=== PATIENT | male | born 1935 | race African-American/Black ===

== ENCOUNTER 2019-12-13 18:38 | Inpatient (IN) | payer BC, MEDICARE ==
[~2019-12-13] VITALS: Ht 177.8 cm; Wt 86.2 kg
[2019-12-13] MEDS ORDERED: ACETAMINOPHEN 325MG TABLET PO ONE (19:45)
[2019-12-13 20:03] LABS: BASOPHILS % 0.3 % (0.0-2.0); EOSINOPHILS % 0.2 % (0.0-5.0); HEMATOCRIT. 39.6 % (42.0-52.0); HEMOGLOBIN. 13.4 g/dL (14.0-18.0); LYMPHOCYTES % 9.3 % (20.0-50.0); MEAN CORPUSCULAR HEMOGLOBIN 32.1 pg (28.0-32.0); MEAN CORPUSCULAR VOLUME 95.2 fL (80.0-94.0); MEAN PLATELET VOLUME 9.1 fl (7.4-10.4); MONOCYTES % 7.4 % (2.0-8.0); NEUTROPHILS % 82.8 % (40.0-76.0); PLATELET 124 x1000/uL (130-400); RED BLOOD CELL COUNT 4.16 mill/uL (4.7-6.1); RED CELL DISTRIBUTION WIDTH 15.1 % (11.6-14.6)
[2019-12-13 20:10] LABS: PROTHROMBIN TIME 11.2 sec (9.6-11.0)
[2019-12-13 20:13] LABS: CHLORIDE 108 mEq/L (98-107)
[2019-12-13 20:19] LABS: ETHANOL BLOOD < 10 mg/dL
[2019-12-13] MEDS ORDERED: SODIUM CHLORIDE 0.9% 1,000 ML IV ONE (20:50)
[2019-12-13] MEDS ORDERED: IPRATROPIUM/ALBUTEROL 0.5-3(2.5)MG/3ML NEB HHN PRN (21:45)
[2019-12-13] MEDS ORDERED: ACETAMINOPHEN 325MG TABLET PO PRN (21:45)
[2019-12-13] MEDS ORDERED: GUAIFENESIN 200MG/10ML SUGAR FREE UDC PO PRN (21:45)
[2019-12-13] MEDS ORDERED: ONDANSETRON HCL 4MG/2ML INJ IV PRN (21:45)
[2019-12-13] MEDS ORDERED: MAGNESIUM/ALUMINUM HYDROXIDE/SIMETHICONE 30ML UDC PO PRN (21:45)
[2019-12-13 21:58] LABS: CLARITY URINE CLEAR (CLEAR); COLOR URINE YELLOW (YELLOW); KETONES URINE NEGATIVE (NEGATIVE); LEUKOCYTE ESTERASE URINE NEGATIVE (NEGATIVE); NITRITE URINE NEGATIVE (NEGATIVE); OCCULT BLOOD URINE NEGATIVE (NEGATIVE); PH URINE 6.5 (4.5-8.0); PROTEIN URINE NEGATIVE (NEGATIVE); SPECIFIC GRAVITY URINE 1.018 (1.005-1.030); UROBILINOGEN URINE 0.2 E.U./dL (0.2-1.0)
[2019-12-13] MEDS ORDERED: MORPHINE SULFATE 2 MG/ML CPJ (NOT FOR IM USE) IV PRN (22:00)
[2019-12-13] MEDS ORDERED: HYDROCODONE/ACETAMINOPHEN 10/325MG TABLET PO PRN (22:00)
[2019-12-13] MEDS: SODIUM CHLORIDE 0.45% 1,000 ML IV SCH (22:00)
[2019-12-13 22:14] LABS: *BARBITURATES SCREEN URINE NEGATIVE (NEGATIVE)
[2019-12-13 22:15] LABS: *AMPHETAMINES SCREEN URINE NEGATIVE (NEGATIVE); *BENZODIAZEPINES SCREEN URINE NEGATIVE (NEGATIVE); *COCAINE SCREEN URINE NEGATIVE (NEGATIVE); CANNABINOID URINE SCREEN NEGATIVE (NEGATIVE); METHADONE URINE SCREEN NEGATIVE (NEGATIVE); OPIATES URINE SCREEN NEGATIVE (NEGATIVE); PHENCYCLIDINE URINE SCREEN NEGATIVE (NEGATIVE)
[2019-12-13] MEDS: SODIUM CHLORIDE 0.9% INJ 3ML FLUSH IVF SCH (22:59)
[2019-12-14 00:29] LABS: CREATINE KINASE MB FRACTION 9.1 ng/mL (0.5-3.6)
[2019-12-14 04:39] LABS: CHLORIDE 110 mEq/L (98-107)
[2019-12-14 04:48] LABS: CREATINE KINASE 385 IU/L (39-308); CREATINE KINASE MB FRACTION 8.1 ng/mL (0.5-3.6); HEMATOCRIT. 38.3 % (42.0-52.0); HEMOGLOBIN. 12.7 g/dL (14.0-18.0); MEAN CORPUSCULAR HEMOGLOBIN 32.4 pg (28.0-32.0); MEAN CORPUSCULAR VOLUME 97.9 fL (80.0-94.0); MEAN PLATELET VOLUME 9.6 fl (7.4-10.4); PLATELET 100 x1000/uL (130-400); RED BLOOD CELL COUNT 3.91 mill/uL (4.7-6.1)
[2019-12-14] MEDS: LORAZEPAM 2MG/ML CPJ IV PRN ×4 (05:37→17:25)
[2019-12-14] MEDS: SODIUM CHLORIDE 0.9% INJ 3ML FLUSH IVF SCH ×3 (06:13→22:00)
[2019-12-14] MEDS ORDERED: ENOXAPARIN 40MG/0.4ML SYR SUBCUT SCH (09:00)
[2019-12-14 09:12] VITALS: BP 164/63
[2019-12-14 11:00] VITALS: BP 164/63
[2019-12-14 12:26] VITALS: BP 139/56
[2019-12-14 12:52] LABS: PLATELET ESTIMATE DECREASED
[2019-12-14] MEDS ORDERED: FINA5TAB11 PO (15:01)
[2019-12-14] MEDS ORDERED: LISI40TA4 MT (15:01)
[2019-12-14] MEDS ORDERED: MEMA10TA55 PO (15:01)
[2019-12-14] MEDS ORDERED: HYDR-4135 PO (15:01)
[2019-12-14] MEDS ORDERED: DONE10TA43 PO (15:01)
[2019-12-14] MEDS ORDERED: SERT25TA74 PO (15:01)
[2019-12-14] MEDS ORDERED: AMLO5TAB88 PO (15:01)
[2019-12-14] MEDS ORDERED: GABA-529 PO (15:01)
[2019-12-14] MEDS ORDERED: TAMS-11 PO (15:01)
[2019-12-14] MEDS ORDERED: APIX2.5T MT (15:01)
[2019-12-14] MEDS ORDERED: FURO40TA5 PO (15:01)
[2019-12-14 15:33] VITALS: BP 139/64
[2019-12-14] MEDS: SODIUM CHLORIDE 0.45% 1,000 ML IV SCH (22:00)
[2019-12-15] VITALS (12 sets, daily range): BP systolic 147–166; BP diastolic 67–116
[2019-12-15] MEDS: SODIUM CHLORIDE 0.9% INJ 3ML FLUSH IVF SCH ×3 (05:19→21:35)
[2019-12-15 07:09] LABS: VITAMIN B12 SERUM 1510 pg/mL (211-911)
[2019-12-15] MEDS: APIXABAN 2.5 MG TABLET PO SCH ×2 (10:00→17:00)
[2019-12-15] MEDS: LORAZEPAM 2MG/ML CPJ IV PRN ×2 (10:59→16:20)
[2019-12-15] MEDS: SODIUM CHLORIDE 0.45% 1,000 ML IV SCH (21:35)
[2019-12-16] VITALS (12 sets, daily range): BP systolic 136–194; BP diastolic 59–100
[2019-12-16] MEDS: CLONIDINE 0.1MG TABLET PO PRN (05:05)
[2019-12-16] MEDS: SODIUM CHLORIDE 0.9% INJ 3ML FLUSH IVF SCH ×3 (05:16→22:18)
[2019-12-16 06:13] LABS: CHLORIDE 111 mEq/L (98-107)
[2019-12-16 08:08] LABS: HEMATOCRIT. 40.5 % (42.0-52.0); HEMOGLOBIN. 13.5 g/dL (14.0-18.0); MEAN CORPUSCULAR HEMOGLOBIN 32.6 pg (28.0-32.0); MEAN CORPUSCULAR VOLUME 97.3 fL (80.0-94.0); MEAN PLATELET VOLUME 10.1 fl (7.4-10.4); PLATELET 108 x1000/uL (130-400); RED BLOOD CELL COUNT 4.16 mill/uL (4.7-6.1)
[2019-12-16] MEDS: APIXABAN 2.5 MG TABLET PO SCH (08:27)
[2019-12-16 11:58] LABS: PLATELET ESTIMATE DECREASED
[2019-12-16] MEDS: AMLODIPINE 5MG TABLET PO SCH ×2 (12:02→20:23)
[2019-12-16] MEDS: LORAZEPAM 2MG/ML CPJ IV PRN ×2 (15:35→20:23)
[2019-12-16] MEDS ORDERED: BISACODYL 10MG SUPP PR NR (16:00)
[2019-12-16] MEDS ORDERED: LACTULOSE 20G/30ML UDC PO NR (17:00)
[2019-12-16] MEDS: MEMANTINE HCL 10MG TABLET PO SCH (18:01)
[2019-12-16] MEDS: ALPRAZOLAM 0.25 MG TABLET PO PRN (18:49)
[2019-12-16] MEDS ORDERED: BISACODYL 10MG SUPP PR PRN (21:00)
[2019-12-16] MEDS ORDERED: DOCUSATE SODIUM 100MG CAPSULE PO SCH (21:00)
[2019-12-16] MEDS ORDERED: MEMANTINE HCL 5MG TABLET PO SCH (21:00)
[2019-12-16 22:39] LABS: CLARITY URINE CLEAR (CLEAR); COLOR URINE YELLOW (YELLOW); KETONES URINE NEGATIVE (NEGATIVE); LEUKOCYTE ESTERASE URINE NEGATIVE (NEGATIVE); NITRITE URINE NEGATIVE (NEGATIVE); OCCULT BLOOD URINE NEGATIVE (NEGATIVE); PROTEIN URINE NEGATIVE (NEGATIVE); SPECIFIC GRAVITY URINE 1.005 (1.005-1.030); UROBILINOGEN URINE 0.2 E.U./dL (0.2-1.0)
[2019-12-17] VITALS (11 sets, daily range): BP systolic 139–175; BP diastolic 64–108
[2019-12-17] MEDS: HYDRALAZINE 20MG/ML VIAL IV PRN (00:21)
[2019-12-17] MEDS: LORAZEPAM 2MG/ML CPJ IV PRN ×3 (02:10→17:44)
[2019-12-17] MEDS: SODIUM CHLORIDE 0.9% INJ 3ML FLUSH IVF SCH ×3 (06:33→21:35)
[2019-12-17] MEDS: MEMANTINE HCL 10MG TABLET PO SCH ×2 (09:00→17:00)
[2019-12-17] MEDS: AMLODIPINE 5MG TABLET PO SCH ×2 (09:00→20:04)
[2019-12-17 10:25] LABS: BASOPHILS % 0.4 % (0.0-2.0); EOSINOPHILS % 1.2 % (0.0-5.0); HEMATOCRIT. 41.5 % (42.0-52.0); HEMOGLOBIN. 14.2 g/dL (14.0-18.0); LYMPHOCYTES % 18.5 % (20.0-50.0); MEAN CORPUSCULAR HEMOGLOBIN 32.7 pg (28.0-32.0); MEAN CORPUSCULAR VOLUME 95.7 fL (80.0-94.0); MEAN PLATELET VOLUME 9.3 fl (7.4-10.4); MONOCYTES % 12.9 % (2.0-8.0); PLATELET 109 x1000/uL (130-400); RED BLOOD CELL COUNT 4.34 mill/uL (4.7-6.1); RED CELL DISTRIBUTION WIDTH 15.3 % (11.6-14.6)
[2019-12-17 10:35] LABS: CHLORIDE 108 mEq/L (98-107)
[2019-12-17] MEDS ORDERED: MIDAZOLAM HCL 2 MG/2 ML VIAL ONE (13:22)
[2019-12-17] MEDS ORDERED: PROPOFOL 10MG/ML 100ML 100 ML IV ONE (13:23)
[2019-12-17] MEDS ORDERED: GENTAMICIN SULF 40MG/ML 2ML VIAL ONE (13:29)
[2019-12-17] MEDS ORDERED: GENTAMICIN/NS IRRIGATION 500 ML IR ONE (13:31)
[2019-12-17] MEDS ORDERED: LIDOCAINE HCL 1% 20ML VIAL (Pyxis) INJ ONE (13:31)
[2019-12-17] MEDS ORDERED: MORPHINE SULFATE 2 MG/ML CPJ (NOT FOR IM USE) IV PRN (15:00)
[2019-12-17] MEDS ORDERED: HYDROCODONE/ACETAMINOPHEN 5/325MG TABLET PO PRN (15:00)
[2019-12-17] MEDS: LOSARTAN POTASSIUM 50 MG TABLET PO SCH (15:00)
[2019-12-17] MEDS ORDERED: CEFAZOLIN 1000MG PREMIX 50 ML IV SCH (16:00)
[2019-12-17] MEDS: ALPRAZOLAM 0.25 MG TABLET PO PRN (17:41)
[2019-12-17] MEDS ORDERED: HALOPERIDOL LACTATE 5MG/ML VIAL IM NR (19:00)
[2019-12-17] MEDS: CEFAZOLIN 1000MG PREMIX 50 ML IV SCH (20:01)
[2019-12-17] MEDS ORDERED: CEFAZOLIN SODIUM 1000MG/VIAL IV SCH (22:00)
[2019-12-18] VITALS (12 sets, daily range): BP systolic 132–155; BP diastolic 44–81
[2019-12-18] MEDS: LORAZEPAM 2MG/ML CPJ IV PRN ×3 (01:58→20:46)
[2019-12-18] MEDS: CEFAZOLIN 1000MG PREMIX 50 ML IV SCH ×3 (02:03→19:05)
[2019-12-18] MEDS: SODIUM CHLORIDE 0.9% INJ 3ML FLUSH IVF SCH ×3 (05:39→22:02)
[2019-12-18 06:12] LABS: CHLORIDE 108 mEq/L (98-107)
[2019-12-18 06:13] LABS: BASOPHILS % 0.2 % (0.0-2.0); EOSINOPHILS % 0.9 % (0.0-5.0); HEMATOCRIT. 39.2 % (42.0-52.0); HEMOGLOBIN. 13.3 g/dL (14.0-18.0); LYMPHOCYTES % 12.1 % (20.0-50.0); MEAN CORPUSCULAR HEMOGLOBIN 32.5 pg (28.0-32.0); MEAN CORPUSCULAR VOLUME 95.6 fL (80.0-94.0); MONOCYTES % 11.9 % (2.0-8.0); NEUTROPHILS % 74.9 % (40.0-76.0); PLATELET 113 x1000/uL (130-400); RED CELL DISTRIBUTION WIDTH 15.5 % (11.6-14.6)
[2019-12-18] MEDS: ALPRAZOLAM 0.25 MG TABLET PO PRN (07:31)
[2019-12-18] MEDS: MEMANTINE HCL 10MG TABLET PO SCH ×2 (08:36→16:42)
[2019-12-18] MEDS: LOSARTAN POTASSIUM 50 MG TABLET PO SCH ×3 (08:36→20:46)
[2019-12-18] MEDS: AMLODIPINE 5MG TABLET PO SCH ×2 (08:36→20:45)
[2019-12-18] MEDS: RISPERIDONE 0.5MG TABLET PO SCH (20:46)
[2019-12-19] VITALS (13 sets, daily range): BP systolic 128–179; BP diastolic 67–99
[2019-12-19] MEDS: CLONIDINE 0.1MG TABLET PO PRN (04:09)
[2019-12-19] MEDS: SODIUM CHLORIDE 0.9% INJ 3ML FLUSH IVF SCH ×3 (05:13→21:24)
[2019-12-19] MEDS: MEMANTINE HCL 10MG TABLET PO SCH ×2 (09:57→17:45)
[2019-12-19] MEDS: DOCUSATE SODIUM 100MG CAPSULE PO PRN ×2 (09:58→17:45)
[2019-12-19] MEDS: APIXABAN 2.5 MG TABLET PO SCH ×2 (09:58→17:45)
[2019-12-19] MEDS: RISPERIDONE 0.5MG TABLET PO SCH ×2 (09:58→17:45)
[2019-12-19] MEDS: LOSARTAN POTASSIUM 50 MG TABLET PO SCH ×2 (09:58→21:24)
[2019-12-19] MEDS: AMLODIPINE 5MG TABLET PO SCH ×2 (09:58→21:24)
[2019-12-20] VITALS (12 sets, daily range): BP systolic 123–179; BP diastolic 28–114
[2019-12-20] MEDS: LORAZEPAM 2MG/ML CPJ IV PRN ×2 (00:09→14:47)
[2019-12-20] MEDS: SODIUM CHLORIDE 0.9% INJ 3ML FLUSH IVF SCH ×3 (05:46→21:17)
[2019-12-20 06:45] LABS: BASOPHILS % 0.2 % (0.0-2.0); EOSINOPHILS % 2.2 % (0.0-5.0); HEMATOCRIT. 43.2 % (42.0-52.0); HEMOGLOBIN. 14.6 g/dL (14.0-18.0); LYMPHOCYTES % 18.9 % (20.0-50.0); MEAN CORPUSCULAR HEMOGLOBIN 32.4 pg (28.0-32.0); MEAN PLATELET VOLUME 9.5 fl (7.4-10.4); MONOCYTES % 13.4 % (2.0-8.0); NEUTROPHILS % 65.3 % (40.0-76.0); PLATELET 126 x1000/uL (130-400); RED CELL DISTRIBUTION WIDTH 15.6 % (11.6-14.6)
[2019-12-20 06:56] LABS: CHLORIDE 109 mEq/L (98-107)
[2019-12-20] MEDS: RISPERIDONE 0.5MG TABLET PO SCH ×2 (08:38→16:04)
[2019-12-20] MEDS: APIXABAN 2.5 MG TABLET PO SCH ×2 (08:38→16:04)
[2019-12-20] MEDS: MEMANTINE HCL 10MG TABLET PO SCH ×2 (08:38→16:04)
[2019-12-20] MEDS: LOSARTAN POTASSIUM 50 MG TABLET PO SCH ×2 (08:38→20:50)
[2019-12-20] MEDS: AMLODIPINE 5MG TABLET PO SCH ×2 (08:39→20:50)
[2019-12-20] MEDS: DOCUSATE SODIUM 100MG CAPSULE PO PRN ×2 (08:39→16:04)
[2019-12-21] VITALS (12 sets, daily range): BP systolic 100–179; BP diastolic 49–89
[2019-12-21] MEDS: CLONIDINE 0.1MG TABLET PO PRN (02:18)
[2019-12-21] MEDS: SODIUM CHLORIDE 0.9% INJ 3ML FLUSH IVF SCH ×3 (06:14→21:51)
[2019-12-21 07:44] LABS: BASOPHILS % 0.4 % (0.0-2.0); EOSINOPHILS % 2.8 % (0.0-5.0); HEMATOCRIT. 40.9 % (42.0-52.0); MEAN CORPUSCULAR HEMOGLOBIN 32.5 pg (28.0-32.0); MEAN CORPUSCULAR VOLUME 94.8 fL (80.0-94.0); MEAN PLATELET VOLUME 9.4 fl (7.4-10.4); MONOCYTES % 14.6 % (2.0-8.0); NEUTROPHILS % 63.2 % (40.0-76.0); PLATELET 118 x1000/uL (130-400); RED BLOOD CELL COUNT 4.32 mill/uL (4.7-6.1); RED CELL DISTRIBUTION WIDTH 15.3 % (11.6-14.6)
[2019-12-21 08:57] LABS: CHLORIDE 109 mEq/L (98-107)
[2019-12-21] MEDS: APIXABAN 2.5 MG TABLET PO SCH ×2 (09:00→17:04)
[2019-12-21] MEDS: MEMANTINE HCL 10MG TABLET PO SCH ×2 (09:00→17:04)
[2019-12-21] MEDS ORDERED: RISPERIDONE 1MG TABLET PO SCH (09:00)
[2019-12-21] MEDS: AMLODIPINE 5MG TABLET PO SCH ×2 (09:00→20:35)
[2019-12-21] MEDS: LOSARTAN POTASSIUM 50 MG TABLET PO SCH ×2 (09:00→20:35)
[2019-12-22] MEDS: HYDRALAZINE 20MG/ML VIAL IV PRN (01:25)
[2019-12-22] MEDS: DIPHENHYDRAMINE 50MG/ML VIAL IV PRN (01:25)
[2019-12-22] MEDS: SODIUM CHLORIDE 0.9% INJ 3ML FLUSH IVF SCH ×3 (06:49→21:22)
[2019-12-22 07:08] LABS: BASOPHILS % 0.6 % (0.0-2.0); EOSINOPHILS % 2.4 % (0.0-5.0); HEMATOCRIT. 42.4 % (42.0-52.0); HEMOGLOBIN. 14.4 g/dL (14.0-18.0); LYMPHOCYTES % 23.3 % (20.0-50.0); MEAN CORPUSCULAR HEMOGLOBIN 32.2 pg (28.0-32.0); MEAN CORPUSCULAR VOLUME 95.1 fL (80.0-94.0); MEAN PLATELET VOLUME 9.8 fl (7.4-10.4); MONOCYTES % 14.9 % (2.0-8.0); NEUTROPHILS % 58.8 % (40.0-76.0); PLATELET 121 x1000/uL (130-400); RED BLOOD CELL COUNT 4.46 mill/uL (4.7-6.1); RED CELL DISTRIBUTION WIDTH 15.7 % (11.6-14.6)
[2019-12-22 07:19] LABS: CHLORIDE 108 mEq/L (98-107)
[2019-12-22 08:00] VITALS: BP 158/78
[2019-12-22] MEDS: APIXABAN 2.5 MG TABLET PO SCH ×2 (09:46→17:34)
[2019-12-22] MEDS: LOSARTAN POTASSIUM 50 MG TABLET PO SCH ×2 (09:46→20:23)
[2019-12-22] MEDS: MEMANTINE HCL 10MG TABLET PO SCH ×2 (09:46→17:34)
[2019-12-22] MEDS: AMLODIPINE 5MG TABLET PO SCH ×2 (09:53→20:23)
[2019-12-22 16:00] VITALS: BP 137/80
[2019-12-22 20:00] VITALS: BP 137/71
[2019-12-22] MEDS: RISPERIDONE 1MG TABLET PO SCH (20:23)
[2019-12-22] MEDS: HALOPERIDOL LACTATE 5MG/ML VIAL IM PRN (23:54)
[2019-12-23] VITALS: BP 147/79
[2019-12-23 04:00] VITALS: BP 128/86
[2019-12-23] MEDS: SODIUM CHLORIDE 0.9% INJ 3ML FLUSH IVF SCH ×3 (05:19→20:38)
[2019-12-23 08:00] VITALS: BP 145/76
[2019-12-23] MEDS: MEMANTINE HCL 10MG TABLET PO SCH ×2 (10:06→17:08)
[2019-12-23] MEDS: LOSARTAN POTASSIUM 50 MG TABLET PO SCH ×2 (10:07→20:37)
[2019-12-23] MEDS: AMLODIPINE 5MG TABLET PO SCH ×2 (10:07→20:38)
[2019-12-23] MEDS: APIXABAN 2.5 MG TABLET PO SCH ×2 (10:07→17:08)
[2019-12-23 12:00] VITALS: BP 102/72
[2019-12-23 16:00] VITALS: BP 117/66
[2019-12-23 20:00] VITALS: BP 143/75
[2019-12-23] MEDS: RISPERIDONE 1MG TABLET PO SCH (20:37)
[2019-12-23] MEDS ORDERED: HYDRALAZINE 10 MG in SODIUM CHLORIDE 0.9% 49.5 ML IV PRN (21:00)
[2019-12-23] MEDS: HALOPERIDOL LACTATE 5MG/ML VIAL IM PRN (21:35)
[2019-12-24] VITALS: BP 165/75
[2019-12-24 04:00] VITALS: BP 159/83
[2019-12-24] MEDS: SODIUM CHLORIDE 0.9% INJ 3ML FLUSH IVF SCH ×3 (05:43→21:30)
[2019-12-24] MEDS: HALOPERIDOL LACTATE 5MG/ML VIAL IM PRN ×2 (05:43→21:28)
[2019-12-24 07:20] LABS: HEMATOCRIT. 41.6 % (42.0-52.0); HEMOGLOBIN. 14.1 g/dL (14.0-18.0); MEAN CORPUSCULAR HEMOGLOBIN 32.3 pg (28.0-32.0); MEAN PLATELET VOLUME 8.7 fl (7.4-10.4); PLATELET 122 x1000/uL (130-400); RED BLOOD CELL COUNT 4.38 mill/uL (4.7-6.1); RED CELL DISTRIBUTION WIDTH 15.2 % (11.6-14.6)
[2019-12-24 07:26] LABS: CHLORIDE 107 mEq/L (98-107)
[2019-12-24 08:00] VITALS: BP 150/80
[2019-12-24] MEDS: APIXABAN 2.5 MG TABLET PO SCH ×2 (09:45→17:21)
[2019-12-24] MEDS: AMLODIPINE 5MG TABLET PO SCH ×2 (09:45→20:37)
[2019-12-24] MEDS: LOSARTAN POTASSIUM 50 MG TABLET PO SCH ×2 (09:45→20:37)
[2019-12-24] MEDS: MEMANTINE HCL 10MG TABLET PO SCH ×2 (09:45→17:21)
[2019-12-24 12:00] VITALS: BP 168/75
[2019-12-24 13:48] LABS: PLATELET ESTIMATE SLIGHTLY DECREASED
[2019-12-24 16:00] VITALS: BP 167/83
[2019-12-24 20:00] VITALS: BP 161/73
[2019-12-24] MEDS: RISPERIDONE 1MG TABLET PO SCH (20:37)
[2019-12-24] MEDS: DIPHENHYDRAMINE 50MG/ML VIAL IV PRN (20:38)
[2019-12-25] VITALS (7 sets, daily range): BP systolic 117–167; BP diastolic 63–83
[2019-12-25] MEDS: SODIUM CHLORIDE 0.9% INJ 3ML FLUSH IVF SCH ×3 (06:26→23:03)
[2019-12-25] MEDS: AMLODIPINE 5MG TABLET PO SCH ×2 (08:34→20:34)
[2019-12-25] MEDS: APIXABAN 2.5 MG TABLET PO SCH ×2 (08:34→17:29)
[2019-12-25] MEDS: LOSARTAN POTASSIUM 50 MG TABLET PO SCH ×2 (08:35→20:34)
[2019-12-25] MEDS: MEMANTINE HCL 10MG TABLET PO SCH ×2 (08:35→17:29)
[2019-12-25] MEDS: DEXT 5%/0.45% NACL 1000ML 1,000 ML IV SCH (13:18)
[2019-12-25] MEDS: HALOPERIDOL LACTATE 5MG/ML VIAL IM PRN ×2 (15:14→23:02)
[2019-12-25] MEDS: RISPERIDONE 1MG TABLET PO SCH (20:34)
[2019-12-25] MEDS: DIPHENHYDRAMINE 50MG/ML VIAL IV PRN (20:34)
[2019-12-26] VITALS (7 sets, daily range): BP systolic 131–160; BP diastolic 67–82
[2019-12-26] MEDS: DIPHENHYDRAMINE 50MG/ML VIAL IV PRN (01:13)
[2019-12-26] MEDS: SODIUM CHLORIDE 0.9% INJ 3ML FLUSH IVF SCH ×3 (06:29→21:08)
[2019-12-26 08:53] LABS: CHLORIDE 107 mEq/L (98-107)
[2019-12-26 08:55] LABS: BASOPHILS % 0.6 % (0.0-2.0); EOSINOPHILS % 2.1 % (0.0-5.0); HEMATOCRIT. 42.2 % (42.0-52.0); HEMOGLOBIN. 14.4 g/dL (14.0-18.0); LYMPHOCYTES % 25.9 % (20.0-50.0); MEAN CORPUSCULAR HEMOGLOBIN 32.5 pg (28.0-32.0); MEAN CORPUSCULAR VOLUME 95.3 fL (80.0-94.0); MONOCYTES % 14.6 % (2.0-8.0); NEUTROPHILS % 56.8 % (40.0-76.0); PLATELET 123 x1000/uL (130-400); RED BLOOD CELL COUNT 4.43 mill/uL (4.7-6.1); RED CELL DISTRIBUTION WIDTH 15.2 % (11.6-14.6)
[2019-12-26] MEDS: APIXABAN 2.5 MG TABLET PO SCH ×2 (09:05→18:21)
[2019-12-26] MEDS: MEMANTINE HCL 10MG TABLET PO SCH ×2 (09:05→18:21)
[2019-12-26] MEDS: LOSARTAN POTASSIUM 50 MG TABLET PO SCH ×2 (09:05→20:49)
[2019-12-26] MEDS: AMLODIPINE 5MG TABLET PO SCH ×2 (09:17→20:50)
[2019-12-26] MEDS: HALOPERIDOL LACTATE 5MG/ML VIAL IM PRN (20:50)
[2019-12-26] MEDS: RISPERIDONE 1MG TABLET PO SCH (20:50)
[2019-12-26] MEDS: DEXT 5%/0.45% NACL 1000ML 1,000 ML IV SCH (21:39)
[2019-12-27] VITALS: BP 136/81
[2019-12-27 04:00] VITALS: BP 142/83
[2019-12-27] MEDS: SODIUM CHLORIDE 0.9% INJ 3ML FLUSH IVF SCH ×3 (05:19→21:06)
[2019-12-27] MEDS: HALOPERIDOL LACTATE 5MG/ML VIAL IM PRN ×2 (05:24→17:22)
[2019-12-27 08:00] VITALS: BP 144/83
[2019-12-27] MEDS: MEMANTINE HCL 10MG TABLET PO SCH ×2 (09:00→17:22)
[2019-12-27] MEDS: AMLODIPINE 5MG TABLET PO SCH ×2 (09:00→21:06)
[2019-12-27] MEDS: LOSARTAN POTASSIUM 50 MG TABLET PO SCH ×2 (09:00→21:06)
[2019-12-27] MEDS: APIXABAN 2.5 MG TABLET PO SCH ×2 (09:00→17:22)
[2019-12-27 12:00] VITALS: BP 141/70
[2019-12-27] MEDS: DEXT 5%/0.45% NACL 1000ML 1,000 ML IV SCH (15:00)
[2019-12-27 16:00] VITALS: BP 106/63
[2019-12-27 20:00] VITALS: BP 146/99
[2019-12-27] MEDS: RISPERIDONE 1MG TABLET PO SCH (21:05)
[2019-12-28] VITALS: BP 141/66
[2019-12-28 04:00] VITALS: BP 157/79
[2019-12-28] MEDS: SODIUM CHLORIDE 0.9% INJ 3ML FLUSH IVF SCH ×3 (05:07→23:24)
[2019-12-28] MEDS: DEXT 5%/0.45% NACL 1000ML 1,000 ML IV SCH (06:54)
[2019-12-28 08:00] VITALS: BP 127/67
[2019-12-28] MEDS: LOSARTAN POTASSIUM 50 MG TABLET PO SCH ×2 (09:20→20:47)
[2019-12-28] MEDS: MEMANTINE HCL 10MG TABLET PO SCH ×2 (09:21→17:43)
[2019-12-28] MEDS: APIXABAN 2.5 MG TABLET PO SCH ×2 (09:21→17:43)
[2019-12-28] MEDS: AMLODIPINE 5MG TABLET PO SCH ×2 (09:21→20:47)
[2019-12-28] MEDS: HALOPERIDOL LACTATE 5MG/ML VIAL IM PRN ×2 (09:22→23:23)
[2019-12-28 12:00] VITALS: BP 139/58
[2019-12-28 16:00] VITALS: BP 113/74
[2019-12-28 20:00] VITALS: BP 130/77
[2019-12-28] MEDS: RISPERIDONE 1MG TABLET PO SCH (20:47)
[2019-12-29] VITALS: BP 140/76
[2019-12-29] MEDS: DEXT 5%/0.45% NACL 1000ML 1,000 ML IV SCH ×2 (00:20→16:56)
[2019-12-29 04:00] VITALS: BP 150/66
[2019-12-29] MEDS: SODIUM CHLORIDE 0.9% INJ 3ML FLUSH IVF SCH ×3 (05:09→22:00)
[2019-12-29 07:32] LABS: BASOPHILS % 0.5 % (0.0-2.0); EOSINOPHILS % 1.3 % (0.0-5.0); HEMATOCRIT. 44.1 % (42.0-52.0); LYMPHOCYTES % 19.3 % (20.0-50.0); MEAN CORPUSCULAR HEMOGLOBIN 32.5 pg (28.0-32.0); MEAN CORPUSCULAR VOLUME 95.3 fL (80.0-94.0); MEAN PLATELET VOLUME 9.3 fl (7.4-10.4); MONOCYTES % 11.6 % (2.0-8.0); NEUTROPHILS % 67.3 % (40.0-76.0); PLATELET 149 x1000/uL (130-400); RED BLOOD CELL COUNT 4.63 mill/uL (4.7-6.1); RED CELL DISTRIBUTION WIDTH 14.8 % (11.6-14.6)
[2019-12-29 07:41] LABS: CHLORIDE 105 mEq/L (98-107)
[2019-12-29 08:00] VITALS: BP 136/71
[2019-12-29] MEDS: LOSARTAN POTASSIUM 50 MG TABLET PO SCH ×2 (10:08→21:21)
[2019-12-29] MEDS: APIXABAN 2.5 MG TABLET PO SCH ×2 (10:08→16:56)
[2019-12-29] MEDS: MEMANTINE HCL 10MG TABLET PO SCH ×2 (10:08→16:56)
[2019-12-29] MEDS: AMLODIPINE 5MG TABLET PO SCH ×2 (10:08→21:21)
[2019-12-29] MEDS: DOCUSATE SODIUM 100MG CAPSULE PO PRN ×2 (10:08→17:19)
[2019-12-29 12:00] VITALS: BP 131/71
[2019-12-29 16:00] VITALS: BP 104/63
[2019-12-29 20:00] VITALS: BP 115/62
[2019-12-29] MEDS: RISPERIDONE 1MG TABLET PO SCH (21:21)
[2019-12-30] VITALS: BP 133/71
[2019-12-30 04:00] VITALS: BP 162/82
[2019-12-30] MEDS: SODIUM CHLORIDE 0.9% INJ 3ML FLUSH IVF SCH ×3 (06:00→22:00)
[2019-12-30 08:00] VITALS: BP 133/71
[2019-12-30] MEDS: DEXT 5%/0.45% NACL 1000ML 1,000 ML IV SCH (09:40)
[2019-12-30] MEDS: LOSARTAN POTASSIUM 50 MG TABLET PO SCH ×2 (10:13→21:00)
[2019-12-30] MEDS: APIXABAN 2.5 MG TABLET PO SCH ×2 (10:13→17:17)
[2019-12-30] MEDS: MEMANTINE HCL 10MG TABLET PO SCH ×2 (10:13→17:17)
[2019-12-30] MEDS: AMLODIPINE 5MG TABLET PO SCH ×2 (10:13→21:00)
[2019-12-30 12:00] VITALS: BP 132/75
[2019-12-30 16:00] VITALS: BP 119/73
[2019-12-30] MEDS: HALOPERIDOL LACTATE 5MG/ML VIAL IM PRN (16:33)
[2019-12-30 20:00] VITALS: BP 128/71
[2019-12-30] MEDS: RISPERIDONE 1MG TABLET PO SCH (20:06)
[2019-12-31] VITALS: BP 128/65
[2019-12-31] MEDS: HALOPERIDOL LACTATE 5MG/ML VIAL IM PRN ×3 (00:33→23:37)
[2019-12-31 04:00] VITALS: BP 123/7
[2019-12-31 08:00] VITALS: BP 113/61
[2019-12-31] MEDS: MEMANTINE HCL 10MG TABLET PO SCH ×2 (10:29→17:17)
[2019-12-31] MEDS: AMLODIPINE 5MG TABLET PO SCH ×2 (10:29→21:44)
[2019-12-31] MEDS: APIXABAN 2.5 MG TABLET PO SCH ×2 (10:30→17:17)
[2019-12-31] MEDS: LOSARTAN POTASSIUM 50 MG TABLET PO SCH ×2 (10:30→21:44)
[2019-12-31 12:00] VITALS: BP 169/82
[2019-12-31 16:00] VITALS: BP 143/97
[2019-12-31 20:00] VITALS: BP 124/65
[2019-12-31] MEDS: RISPERIDONE 1MG TABLET PO SCH (20:18)
[2019-12-31] MEDS: SODIUM CHLORIDE 0.9% INJ 3ML FLUSH IVF SCH (21:45)
[2020-01-01] VITALS: BP 160/87
[2020-01-01 04:00] VITALS: BP 135/78
[2020-01-01] MEDS: SODIUM CHLORIDE 0.9% INJ 3ML FLUSH IVF SCH ×3 (05:45→21:25)
[2020-01-01 08:00] VITALS: BP 127/68
[2020-01-01] MEDS: LOSARTAN POTASSIUM 50 MG TABLET PO SCH ×2 (09:02→20:40)
[2020-01-01] MEDS: MEMANTINE HCL 10MG TABLET PO SCH ×2 (09:03→17:52)
[2020-01-01] MEDS: APIXABAN 2.5 MG TABLET PO SCH ×2 (09:03→17:52)
[2020-01-01] MEDS: AMLODIPINE 5MG TABLET PO SCH ×2 (09:03→20:40)
[2020-01-01] MEDS: DEXT 5%/0.45% NACL 1000ML 1,000 ML IV SCH (11:40)
[2020-01-01 12:00] VITALS: BP 129/94
[2020-01-01] MEDS: HALOPERIDOL LACTATE 5MG/ML VIAL IM PRN ×2 (13:00→21:25)
[2020-01-01 20:00] VITALS: BP 98/64
[2020-01-01] MEDS: RISPERIDONE 1MG TABLET PO SCH (20:40)
[2020-01-02] VITALS: BP 143/73
[2020-01-02 04:00] VITALS: BP 116/60
[2020-01-02] MEDS: DEXT 5%/0.45% NACL 1000ML 1,000 ML IV SCH ×2 (04:20→20:48)
[2020-01-02] MEDS: SODIUM CHLORIDE 0.9% INJ 3ML FLUSH IVF SCH ×2 (05:38→13:59)
[2020-01-02 08:00] VITALS: BP 147/80
[2020-01-02] MEDS: MEMANTINE HCL 10MG TABLET PO SCH ×2 (08:55→17:31)
[2020-01-02] MEDS: LOSARTAN POTASSIUM 50 MG TABLET PO SCH ×2 (08:55→20:50)
[2020-01-02] MEDS: APIXABAN 2.5 MG TABLET PO SCH ×2 (08:55→17:31)
[2020-01-02] MEDS: AMLODIPINE 5MG TABLET PO SCH ×2 (08:56→20:49)
[2020-01-02 12:00] VITALS: BP 126/63
[2020-01-02] MEDS: HALOPERIDOL LACTATE 5MG/ML VIAL IM PRN (15:32)
[2020-01-02 16:00] VITALS: BP 138/81
[2020-01-02 20:00] VITALS: BP 102/56
[2020-01-02] MEDS: RISPERIDONE 1MG TABLET PO SCH (20:49)
[2020-01-03] VITALS: BP 139/63
[2020-01-03 04:00] VITALS: BP 153/81
[2020-01-03 08:00] VITALS: BP 109/61
[2020-01-03] MEDS: LOSARTAN POTASSIUM 50 MG TABLET PO SCH ×2 (09:00→20:29)
[2020-01-03] MEDS: AMLODIPINE 5MG TABLET PO SCH ×2 (09:00→20:30)
[2020-01-03] MEDS: HALOPERIDOL LACTATE 5MG/ML VIAL IM PRN (09:22)
[2020-01-03] MEDS: APIXABAN 2.5 MG TABLET PO SCH ×2 (09:22→16:30)
[2020-01-03] MEDS: MEMANTINE HCL 10MG TABLET PO SCH ×2 (09:22→16:30)
[2020-01-03 12:00] VITALS: BP 148/75
[2020-01-03] MEDS: DEXT 5%/0.45% NACL 1000ML 1,000 ML IV SCH (13:09)
[2020-01-03] MEDS: SODIUM CHLORIDE 0.9% INJ 3ML FLUSH IVF SCH (13:09)
[2020-01-03 16:00] VITALS: BP 101/59
[2020-01-03 20:00] VITALS: BP 102/63
[2020-01-03] MEDS: RISPERIDONE 1MG TABLET PO SCH (20:44)
[2020-01-04] VITALS: BP 156/86
[2020-01-04 04:00] VITALS: BP 142/79
[2020-01-04] MEDS: DEXT 5%/0.45% NACL 1000ML 1,000 ML IV SCH ×2 (06:20→22:46)
[2020-01-04 08:00] VITALS: BP 159/87
[2020-01-04] MEDS: LOSARTAN POTASSIUM 50 MG TABLET PO SCH ×2 (09:15→20:04)
[2020-01-04] MEDS: APIXABAN 2.5 MG TABLET PO SCH ×2 (09:15→17:02)
[2020-01-04] MEDS: MEMANTINE HCL 10MG TABLET PO SCH ×2 (09:15→17:02)
[2020-01-04] MEDS: AMLODIPINE 5MG TABLET PO SCH ×2 (09:15→20:04)
[2020-01-04] MEDS: HALOPERIDOL LACTATE 5MG/ML VIAL IM PRN ×2 (09:41→20:04)
[2020-01-04 12:00] VITALS: BP 153/75
[2020-01-04 16:00] VITALS: BP 96/55
[2020-01-04 20:00] VITALS: BP 145/84
[2020-01-04] MEDS: RISPERIDONE 1MG TABLET PO SCH (20:04)
[2020-01-04] MEDS ORDERED: LORAZEPAM 2MG/ML CPJ IV PRN (21:30)
[2020-01-04] MEDS: LORAZEPAM 2MG/ML CPJ IM PRN (22:12)
[2020-01-05] VITALS: BP 133/77
[2020-01-05 04:00] VITALS: BP 147/70
[2020-01-05] MEDS ORDERED: LORAZEPAM 2MG/ML CPJ IM PRN (05:30)
[2020-01-05 08:00] VITALS: BP 130/78
[2020-01-05] MEDS: MEMANTINE HCL 10MG TABLET PO SCH ×4 (09:59→18:22)
[2020-01-05] MEDS: APIXABAN 2.5 MG TABLET PO SCH ×4 (09:59→18:22)
[2020-01-05] MEDS: LOSARTAN POTASSIUM 50 MG TABLET PO SCH ×2 (09:59→20:58)
[2020-01-05] MEDS: AMLODIPINE 5MG TABLET PO SCH ×2 (10:20→20:58)
[2020-01-05 12:00] VITALS: BP 129/74
[2020-01-05 16:00] VITALS: BP 154/77
[2020-01-05 20:00] VITALS: BP 146/80
[2020-01-05] MEDS: HALOPERIDOL LACTATE 5MG/ML VIAL IM PRN (20:58)
[2020-01-05] MEDS: RISPERIDONE 1MG TABLET PO SCH (20:58)
[2020-01-06] VITALS: BP 157/78
[2020-01-06] MEDS: LORAZEPAM 2MG/ML CPJ IM PRN (02:33)
[2020-01-06 04:00] VITALS: BP 131/72
[2020-01-06 08:00] VITALS: BP 145/82
[2020-01-06] MEDS: MEMANTINE HCL 10MG TABLET PO SCH ×2 (09:16→17:44)
[2020-01-06] MEDS: LOSARTAN POTASSIUM 50 MG TABLET PO SCH ×2 (09:16→20:41)
[2020-01-06] MEDS: APIXABAN 2.5 MG TABLET PO SCH ×2 (09:16→17:44)
[2020-01-06] MEDS: AMLODIPINE 5MG TABLET PO SCH ×2 (09:16→20:40)
[2020-01-06 12:00] VITALS: BP 172/95
[2020-01-06] MEDS: HALOPERIDOL LACTATE 5MG/ML VIAL IM PRN (12:41)
[2020-01-06] MEDS: CLONIDINE 0.1MG TABLET PO PRN (13:28)
[2020-01-06 16:00] VITALS: BP 124/72
[2020-01-06 20:00] VITALS: BP 112/76
[2020-01-06] MEDS: RISPERIDONE 1MG TABLET PO SCH (20:41)
== END 2020-01-06 21:15 | disposition home health service (06) | DRG 242 ==
LOC: ER 18:38 → MICUSO 21:26 → 6WST 12-14 08:55 → 3WST 12-14 20:40 → 5WST 12-21 23:46 → 6EST 12-23 20:47
PROVIDERS: ADMIT Internal Medicine; ATTEND Internal Medicine
PROC: 4A10X4Z Monitoring of Central Nervous Electrical Activity, External Approach (ICD-10-PCS; 2019-12-13)
PROC: 02H63JZ Insertion of Pacemaker Lead into Right Atrium, Percutaneous Approach (ICD-10-PCS; principal; 2019-12-17)
PROC: 02HK3JZ Insertion of Pacemaker Lead into Right Ventricle, Percutaneous Approach (ICD-10-PCS; 2019-12-17)
PROC: B2141ZZ Fluoroscopy of Right Heart using Low Osmolar Contrast (ICD-10-PCS; 2019-12-17)
PROC: 4B02XSZ Measurement of Cardiac Pacemaker, External Approach (ICD-10-PCS; 2019-12-17)
PROC: 0JH606Z Insertion of Pacemaker, Dual Chamber into Chest Subcutaneous Tissue and Fascia, Open Approach (ICD-10-PCS; 2019-12-17)
DX: I49.5 Sick sinus syndrome (principal); N17.0 Acute kidney failure with tubular necrosis; G93.41 Metabolic encephalopathy; F02.81 Dementia in other diseases classified elsewhere, unspecified severity, with behavioral disturbance; I12.9 Hypertensive chronic kidney disease with stage 1 through stage 4 chronic kidney disease, or unspecified chronic kidney disease; D69.6 Thrombocytopenia, unspecified; G30.9 Alzheimer's disease, unspecified; I25.10 Atherosclerotic heart disease of native coronary artery without angina pectoris; I48.91 Unspecified atrial fibrillation; N18.9 Chronic kidney disease, unspecified; R79.89 Other specified abnormal findings of blood chemistry; D64.9 Anemia, unspecified; E78.5 Hyperlipidemia, unspecified; Z20.828 Contact with and (suspected) exposure to other viral communicable diseases; E87.8 Other disorders of electrolyte and fluid balance, not elsewhere classified; Z79.01 Long term (current) use of anticoagulants; Z78.1 Physical restraint status; Z95.810 Presence of automatic (implantable) cardiac defibrillator; Z79.899 Other long term (current) drug therapy
CPT/HCPCS: 33217; 36415; 70551; 71045; 80048; 80053; 80305; 80320; 81003; 82550; 82553; 82607; 84484; 85025; 93005; 93306; 95816; 97110; 97116; 97162; 97166; 97530; 97535; 99285; C1785; C1898; J0360; J0690; J1200; J1580; J1630; J1650; J2060; J2250; J2704; J3490; J7030; L3670; G0480; U0003-CS